=== PATIENT | female | born 1950 | race Caucasian/White ===

== ENCOUNTER 2020-10-28 14:38 | Inpatient (IN) | payer MEDICARE, OTHER ==
[~2020-10-28] VITALS: Ht 156.2 cm; Wt 67.1 kg
[2020-10-28] MEDS ORDERED: APIX5TAB PO (19:37)
[2020-10-28] MEDS ORDERED: SENN-261 PO (19:37)
[2020-10-28] MEDS ORDERED: PANT40TA2 PO (19:37)
[2020-10-28] MEDS ORDERED: BUPR150T5 PO (19:37)
[2020-10-28] MEDS ORDERED: DOCU100C36 PO (19:37)
[2020-10-28] MEDS ORDERED: BUSP5TAB3 PO (19:37)
[2020-10-28] MEDS ORDERED: OXYC15TA2 PO (19:37)
[2020-10-28] MEDS ORDERED: DRON10CA5 PO (19:37)
[2020-10-28] MEDS ORDERED: MEMA10TA PO (19:58)
[2020-10-28] MEDS ORDERED: SELE200T26 PO (19:58)
[2020-10-28] MEDS ORDERED: RIBO400T PO (19:58)
[2020-10-28] MEDS ORDERED: CHOL100062 PO (19:58)
[2020-10-28] MEDS ORDERED: CALC500T88 PO (19:58)
[2020-10-28] MEDS ORDERED: ZINC50TA65 PO (19:58)
[2020-10-28] MEDS ORDERED: LIOT10VI PO (19:58)
[2020-10-28] MEDS ORDERED: MAGN400T8 PO (19:58)
[2020-10-28] MEDS ORDERED: FERR325T23 PO (19:58)
[2020-10-28] MEDS ORDERED: VITA-287 PO (19:58)
[2020-10-28] MEDS ORDERED: TRAZ-182 PO (19:58)
[2020-10-28] MEDS ORDERED: MAG30ORA2 PO (19:58)
[2020-10-28] MEDS ORDERED: CETI-90 PO (19:58)
[2020-10-28] MEDS ORDERED: ATOR80TA PO (19:58)
[2020-10-28] MEDS ORDERED: POTA10CA43 PO (19:58)
[2020-10-28] MEDS ORDERED: BISO5TAB20 PO (19:58)
[2020-10-28] MEDS ORDERED: DEXL60CA3 PO (19:58)
[2020-10-28] MEDS ORDERED: LEVO75TA7 PO (19:58)
[2020-10-28] MEDS ORDERED: HYPR10DR OP (19:58)
[2020-10-28] MEDS ORDERED: POLY17PO4 PO (19:58)
[2020-10-28] MEDS ORDERED: LIFI1DRO EACHEYE (19:58)
[2020-10-28] MEDS ORDERED: FAMO40TA7 PO (19:58)
[2020-10-28] MEDS ORDERED: CHLO25TA2 PO (19:58)
[2020-10-28] MEDS ORDERED: METF-440 PO (19:58)
[2020-10-28] MEDS ORDERED: IRBE300T19 PO (19:58)
[2020-10-28] MEDS ORDERED: DICY10CA13 PO (19:58)
[2020-10-28] MEDS ORDERED: HYDR-4322 PO (19:58)
[2020-10-28] MEDS ORDERED: HYDR5TAB13 PO (19:58)
[2020-10-28] MEDS ORDERED: KETO5DRO72 OP (19:58)
[2020-10-28 20:00] VITALS: BP 100/51
[2020-10-28] MEDS ORDERED: KETOTIFEN FUMARATE OP SCH (20:30)
[2020-10-28] MEDS ORDERED: HYPROMELLOSE OP SCH (20:30)
[2020-10-28] MEDS ORDERED: CETIRIZINE HCL 10 MG TABLET PO PRN (20:30)
[2020-10-28] MEDS ORDERED: MIRALAX 17 GM POWD.PACK PO PRN (20:30)
[2020-10-28] MEDS ORDERED: TRAZODONE 50 MG TABLET PO PRN (20:30)
[2020-10-28] MEDS ORDERED: SENNOSIDES 1 TABLET PO PRN (20:30)
[2020-10-28] MEDS ORDERED: NALOXONE HCL 0.4 MG/ML AMPUL IV PRN (20:45)
[2020-10-28] MEDS ORDERED: METFORMIN HCL 500 MG TABLET PO SCH (21:00)
[2020-10-28] MEDS ORDERED: Medication Not On Formulary EA (Famotidine 40 MG) PO SCH (21:00)
[2020-10-28] MEDS: buPROPion SR 150 MG TABLET.SA PO SCH (21:50)
[2020-10-28] MEDS: PANTOPRAZOLE SODIUM 40 MG TABLET.DR PO SCH (21:51)
[2020-10-28] MEDS: ATORVASTATIN 40 MG TABLET PO SCH (21:51)
[2020-10-28] MEDS: DRONABINOL 2.5 MG CAPSULE PO SCH (21:51)
[2020-10-28] MEDS: DICYCLOMINE HCL 10 MG CAPSULE PO SCH (21:51)
[2020-10-28] MEDS: OXYCODONE HCL 20 MG TAB.SR.12H PO SCH (21:59)
[2020-10-28] MEDS: HYDROCORTISONE 10 MG TABLET PO SCH (22:03)
[2020-10-28] MEDS ORDERED: HYDROCORTISONE 10 MG TABLET ONE (22:05)
[2020-10-28] MEDS ORDERED: DEXTROSE 50% 50 ML DISP.SYRIN IV PRN (22:15)
[2020-10-28] MEDS ORDERED: OXYCODONE HCL 5 MG TABLET PO PRN (22:30)
--- NOTE | 2020-10-28 22:46 | NUR ---
Pt arrived in the unit at 1907 via gurney accompanied by ophthalmic technologist from [facility]. Pt is AAO x4. No acute distress noted. Admitting diagnosis of s/p right hip replacement and hip OA. Med recon done by Cierra RODRIGUEZ. Notified Dr. Pereyra of admission with new order to start OxyContin 20mg q8h ATC and Dilaudid 4mg q6h prn. Pt c/o 7/10 pain on the right. Scheduled pain med and other due meds given as ordered. Lagunas catheter draining well with clear yellow colored urine. Pt was brought dinner by her . Safety measures maintained. Call light and personal items within reach. Will continue to monitor.
--- NOTE | 2020-10-28 23:00 | NUR ---
Pt refused wound care and picture at this time. Pt stated being in pain and tired, wants to rest and do picture in the morning. Risks and benefits explained, still refused. Will offer again.
[2020-10-29 04:00] VITALS: BP 106/50
[2020-10-29] MEDS: OXYCODONE HCL 20 MG TAB.SR.12H PO SCH ×3 (05:21→22:14)
--- NOTE | 2020-10-29 05:43 | NUR ---
Pt again refused wound care and picture but pt stated if we can do it later in the morning. Risks and benefits explained. Will try to offer again.
[2020-10-29 06:16] LABS: BASOPHILS % (AUTO) 0.3 % (0.0-2.0); EOSINOPHILS # (AUTO) 0.4 K/uL (0.0-0.7); EOSINOPHILS % (AUTO) 5.2 % (0.0-7.0); HEMATOCRIT 23.3 % (31.2-41.9); HEMOGLOBIN 7.8 g/dL (10.9-14.3); LYMPHOCYTES # (AUTO) 1.5 K/uL (20.0-40.0); MEAN CORPUSCULAR HEMOGLOBIN 34.2 uug (24.7-32.8); MEAN CORPUSCULAR HGB CONC 34 g/dL (32.3-35.6); MEAN CORPUSCULAR VOLUME 101.8 fL (75.5-95.3); MONOCYTES # (AUTO) 0.9 K/uL (2.0-10.0); MONOCYTES % (AUTO) 11.3 % (0.0-11.0); NEUTROPHILS # (AUTO) 5.1 K/uL (1.8-8.9); NEUTROPHILS % (AUTO) 64.2 % (38.5-71.5); PLATELET COUNT (AUTO) 177 K/uL (179-408)
[2020-10-29 06:24] LABS: RED BLOOD CELL COUNT(AUTO) 2.29 MIL/uL (3.63-4.92)
[2020-10-29 06:26] LABS: CREATININE 1.3 mg/dL (0.6-1.3); MAGNESIUM 1.8 mg/dL (1.8-2.4); PHOSPHOROUS 3.2 mg/dL (2.5-4.9); POTASSIUM 3.7 mmol/L (3.5-5.1)
[2020-10-29] MEDS: BLOOD SUGAR DIAGNOSTIC 1 EACH STRIP VI SCH ×4 (06:33→22:22)
[2020-10-29] MEDS ORDERED: LEVOTHYROXINE SODIUM 75 MCG TABLET PO SCH ×2 (07:30→11:53)
[2020-10-29 08:00] VITALS: BP 105/60
[2020-10-29] MEDS: buPROPion SR 150 MG TABLET.SA PO SCH (08:50)
[2020-10-29] MEDS: CHOLECALCIFEROL 1,000 UNIT TABLET PO SCH (08:50)
[2020-10-29] MEDS: FERROUS SULFATE 325 MG TABEC PO SCH ×3 (08:51→16:36)
[2020-10-29] MEDS: MAGNESIUM OXIDE 400 MG TABLET PO SCH (08:51)
[2020-10-29] MEDS: PANTOPRAZOLE SODIUM 40 MG TABLET.DR PO SCH ×2 (08:51→22:12)
[2020-10-29] MEDS: busPIRone 5 MG TABLET PO SCH ×3 (08:51→16:36)
[2020-10-29] MEDS: MEMANTINE HCL 10 MG TABLET PO SCH ×2 (08:51→16:36)
[2020-10-29] MEDS: DICYCLOMINE HCL 10 MG CAPSULE PO SCH ×2 (08:51→12:15)
[2020-10-29] MEDS: CALCIUM CARBONATE 500 MG TABLET PO SCH (08:52)
[2020-10-29] MEDS: APIXABAN 5 MG TABLET PO SCH ×2 (08:53→16:37)
[2020-10-29] MEDS ORDERED: Medication Not On Formulary EA (Zinc Amino Acid Chelate (Zinc) 50 MG) PO SCH (09:00)
[2020-10-29] MEDS ORDERED: Medication Not On Formulary EA (Bisoprolol Fumarate 5 MG) PO SCH (09:00)
[2020-10-29] MEDS ORDERED: LIOTHYRONINE SODIUM PO SCH (09:00)
[2020-10-29] MEDS: LOSARTAN POTASSIUM 50 MG TABLET PO SCH (09:00)
[2020-10-29] MEDS ORDERED: Medication Not On Formulary EA (Riboflavin 400 MG) PO SCH (09:00)
[2020-10-29] MEDS: ATENOLOL 50 MG TABLET PO SCH (09:00)
[2020-10-29] MEDS ORDERED: POTASSIUM CHLORIDE 10 MEQ TAB.PRT.SR PO SCH (09:00)
[2020-10-29] MEDS ORDERED: DOCUSATE SODIUM 100 MG CAPSULE PO SCH (09:00)
[2020-10-29] MEDS ORDERED: [UNRECOGNIZED DRUG - OTHER] PO SCH (09:00)
[2020-10-29] MEDS: HYDROCORTISONE 10 MG TABLET PO SCH ×2 (09:15→22:12)
[2020-10-29] MEDS: CHLORTHALIDONE 25 MG TABLET PO SCH (09:16)
[2020-10-29] MEDS: VITAMIN B COMPLEX 1 TABLET PO SCH (09:17)
[2020-10-29] MEDS: DRONABINOL 2.5 MG CAPSULE PO SCH (09:30)
[2020-10-29] MEDS: XIIDRA EACHEYE SCH ×2 (09:33→16:42)
[2020-10-29] MEDS: LIOTHYRONINE SODIUM 5 MCG TABLET PO SCH (10:30)
[2020-10-29] MEDS ORDERED: POLYVINYL ALCOHOL OPHT DROPS 15 ML BOTTLE EACHEYE PRN (10:30)
[2020-10-29] MEDS: HYDROMORPHONE HCL 2 MG TABLET PO PRN (10:43)
[2020-10-29] MEDS ORDERED: DOCU250C14 PO (12:49)
[2020-10-29] MEDS ORDERED: POTA20PA40 PO (12:49)
[2020-10-29] MEDS ORDERED: POTASSIUM CHLORIDE 20 MEQ POWDER PACKET PO SCH (12:59)
[2020-10-29] MEDS ORDERED: METFORMIN HCL 500 MG TABLET PO SCH (13:01)
[2020-10-29] MEDS ORDERED: PLEC3TAB2 PO (13:26)
--- NOTE | 2020-10-29 16:00 | NUR ---
Patient is alert and oriented x 3 denies of any pain, cooperative upon assessment. On room air saturating at 95%. Obtained picture on the right hip surgical site with patient's permission. Dressing is intact. All due meds given as ordered. Patient complains of coughing , Notify Tati Norton OIL PIPE INSPECTOR HELPER and ordered for sputum culture and Benzonatate every 8 hours for cough patient notified and agreed.
[2020-10-29] MEDS: DOCUSATE SODIUM 250 MG CAPSULE PO SCH (16:36)
[2020-10-29] MEDS: METFORMIN HCL 500 MG TABLET PO SCH (16:36)
[2020-10-29 16:39] VITALS: BP 102/56
[2020-10-29] MEDS ORDERED: ISOSORBIDE MONONITRATE 60 MG TAB.SR.24H PO SCH (17:00)
[2020-10-29 20:32] VITALS: BP 100/47
[2020-10-29] MEDS: BENZONATATE 100 MG CAPSULE PO SCH (22:11)
[2020-10-29] MEDS: TRAZODONE 50 MG TABLET PO SCH (22:13)
[2020-10-29] MEDS: ATORVASTATIN 40 MG TABLET PO SCH (22:13)
[2020-10-29] MEDS: INSULIN REGULAR, HUMAN 300 UNIT/3 ML VIAL SQ PRN (22:34)
[2020-10-30 05:12] VITALS: BP 107/54
[2020-10-30] MEDS: LIOTHYRONINE SODIUM 5 MCG TABLET PO SCH (06:09)
[2020-10-30] MEDS: BENZONATATE 100 MG CAPSULE PO SCH ×3 (06:09→21:03)
[2020-10-30] MEDS: OXYCODONE HCL 20 MG TAB.SR.12H PO SCH ×3 (06:09→21:03)
[2020-10-30 06:42] LABS: HEMATOCRIT 22.2 % (31.2-41.9); HEMOGLOBIN 7.6 g/dL (10.9-14.3)
[2020-10-30] MEDS: LEVOTHYROXINE SODIUM 75 MCG TABLET PO SCH (07:01)
[2020-10-30] MEDS: PANTOPRAZOLE SODIUM 40 MG TABLET.DR PO SCH ×2 (07:18→16:32)
[2020-10-30 07:30] VITALS: BP 110/51
[2020-10-30] MEDS: BLOOD SUGAR DIAGNOSTIC 1 EACH STRIP VI SCH ×4 (07:58→20:48)
[2020-10-30] MEDS: INSULIN REGULAR, HUMAN 300 UNIT/3 ML VIAL SQ PRN ×2 (08:48→23:31)
[2020-10-30] MEDS: VITAMIN B COMPLEX 1 TABLET PO SCH (08:49)
[2020-10-30] MEDS: busPIRone 5 MG TABLET PO SCH ×3 (08:50→16:31)
[2020-10-30] MEDS: CHLORTHALIDONE 25 MG TABLET PO SCH (08:50)
[2020-10-30] MEDS: [UNRECOGNIZED DRUG - OTHER] PO SCH (08:50)
[2020-10-30] MEDS: HYDROCORTISONE 10 MG TABLET PO SCH ×2 (08:51→20:50)
[2020-10-30] MEDS: DOCUSATE SODIUM 250 MG CAPSULE PO SCH ×2 (08:51→16:31)
[2020-10-30] MEDS: FERROUS SULFATE 325 MG TABEC PO SCH ×3 (08:52→16:32)
[2020-10-30] MEDS: MEMANTINE HCL 10 MG TABLET PO SCH ×2 (08:53→16:32)
[2020-10-30] MEDS: ZINC SULFATE 220 MG CAPSULE PO SCH (08:53)
[2020-10-30] MEDS: METFORMIN HCL 500 MG TABLET PO SCH ×2 (08:53→16:32)
[2020-10-30] MEDS: MAGNESIUM OXIDE 400 MG TABLET PO SCH (08:53)
[2020-10-30] MEDS: CALCIUM CARBONATE 500 MG TABLET PO SCH (08:53)
[2020-10-30] MEDS: CHOLECALCIFEROL 1,000 UNIT TABLET PO SCH (08:53)
[2020-10-30] MEDS: ATENOLOL 50 MG TABLET PO SCH (08:53)
[2020-10-30] MEDS: HYDROMORPHONE HCL 2 MG TABLET PO PRN (08:55)
[2020-10-30] MEDS: APIXABAN 5 MG TABLET PO SCH ×2 (08:56→16:33)
[2020-10-30] MEDS: LOSARTAN POTASSIUM 50 MG TABLET PO SCH (09:00)
[2020-10-30] MEDS ORDERED: buPROPion SR 150 MG TABLET.SA PO SCH (09:00)
[2020-10-30] MEDS: buPROPion XL 150 MG TAB.SR.24H PO SCH (10:21)
[2020-10-30] MEDS: XIIDRA EACHEYE SCH ×2 (10:21→16:31)
[2020-10-30] MEDS: POTASSIUM CHLORIDE 20 MEQ TAB.PRT.SR PO SCH (10:22)
[2020-10-30] MEDS ORDERED: BUPR300T52 PO (11:56)
[2020-10-30] MEDS: MOTEGRITY PO SCH (12:09)
[2020-10-30] MEDS ORDERED: DICY10CA13 PO (13:34)
[2020-10-30] MEDS: ONDANSETRON HCL 4 MG TABLET PO PRN (14:30)
[2020-10-30 15:36] VITALS: BP 108/53
[2020-10-30] MEDS: DICYCLOMINE HCL 10 MG CAPSULE PO SCH ×2 (16:31→20:49)
--- NOTE | 2020-10-30 18:55 | NUR ---
End of shift note: Pt in bed, A&Ox4, able to verbalize needs, all needs met at this time. Pt denies pain at this time. No acute distress, no SOB. VSS. Pt O2 saturation 94% on 1.0 L NC, 92%-93% on RA. Pt assisted from bed to restroom and back, no BM at this time. Pt had scheduled Colace and home medications per order today. Pt offered PRN Miralax, pt declined. Due medications given per order, no a/r noted. Pt requested home medications Anetteegrity and Bentyl, WIRE LATHER Tati Norton notified, new orders in place. Pt reported nausea this afternoon, MICHAEL Norton notified, Zofran PRN order in place. Zofran PRN administered per order, per pt, effective. Pt denied emesis. Per pt request, administered hot pack for abdominal spasm, effective. Aleksander at bedside this afternoon, nursing care discussed with and pt. Safety measures maintained and fall precautions maintained. Call light and belongings within reach. Will endorse care to slip dumper nurse.
[2020-10-30 20:24] VITALS: BP 129/67
[2020-10-30] MEDS: TRAZODONE 50 MG TABLET PO SCH (20:49)
[2020-10-30] MEDS: ATORVASTATIN 40 MG TABLET PO SCH (20:49)
[2020-10-30] MEDS: MIRALAX 17 GM POWD.PACK PO PRN (21:08)
--- NOTE | 2020-10-30 22:00 | NUR ---
Patient is alert and oriented x 3 On room air saturating at 92%, right hip surgical site dressing intact, ice bag provided for comfort, mild c/o pain , Accu- check done blood sugar 144mg/dl patient refuse to get sliding scale insulin stated "45 minutes past she ate". Risk and benefits discussed patient aware, respected patients rights. All due meds given as ordered, Assist patient to bathroom, no bowels moment ,Lagunas catheter intact urine flowing in bag ,yellow color 500 ml urine in bag patient c/o spasm . Routine pain medications administered as ordered, turned and repositioned . Needs anticipated. safety measures observed all time. Call light with in reach.
[2020-10-31] MEDS: HYDROMORPHONE HCL 2 MG TABLET PO PRN ×2 (00:34→15:00)
--- NOTE | 2020-10-31 00:35 | NUR ---
Patient c/o pain on PS 8/10 right hip turned and repositioned, PRN Dilaudid 2 mg administered as ordered, ice pack provided on pain site. provided quite and calm environment. Needs anticipated Call light with in reach. Will continue monitoring for pain.
[2020-10-31 04:24] VITALS: BP 97/47
--- NOTE | 2020-10-31 04:43 | NUR ---
patient slept through-out night with no acute distress reported. needs anticipated call light with in reach. safety measures observed.
[2020-10-31] MEDS: BENZONATATE 100 MG CAPSULE PO SCH ×3 (06:04→21:35)
[2020-10-31] MEDS: OXYCODONE HCL 20 MG TAB.SR.12H PO SCH ×3 (06:06→21:35)
[2020-10-31] MEDS: BLOOD SUGAR DIAGNOSTIC 1 EACH STRIP VI SCH ×4 (06:41→20:58)
[2020-10-31 07:00] LABS: CREATININE 1.3 mg/dL (0.6-1.3); POTASSIUM 4.2 mmol/L (3.5-5.1)
[2020-10-31] MEDS: LIOTHYRONINE SODIUM 5 MCG TABLET PO SCH (07:06)
[2020-10-31] MEDS: PANTOPRAZOLE SODIUM 40 MG TABLET.DR PO SCH ×2 (07:06→16:30)
[2020-10-31] MEDS: LEVOTHYROXINE SODIUM 75 MCG TABLET PO SCH (07:06)
[2020-10-31 07:49] VITALS: BP 111/56
[2020-10-31] MEDS: ATENOLOL 50 MG TABLET PO SCH (09:00)
[2020-10-31] MEDS: LOSARTAN POTASSIUM 50 MG TABLET PO SCH (09:00)
[2020-10-31] MEDS: XIIDRA EACHEYE SCH ×2 (09:01→16:34)
[2020-10-31] MEDS: MEMANTINE HCL 10 MG TABLET PO SCH ×2 (09:02→16:30)
[2020-10-31] MEDS: CALCIUM CARBONATE 500 MG TABLET PO SCH (09:02)
[2020-10-31] MEDS: buPROPion XL 150 MG TAB.SR.24H PO SCH (09:02)
[2020-10-31] MEDS: POTASSIUM CHLORIDE 20 MEQ TAB.PRT.SR PO SCH (09:02)
[2020-10-31] MEDS: CHOLECALCIFEROL 1,000 UNIT TABLET PO SCH (09:02)
[2020-10-31] MEDS: METFORMIN HCL 500 MG TABLET PO SCH ×2 (09:02→16:30)
[2020-10-31] MEDS: DOCUSATE SODIUM 250 MG CAPSULE PO SCH ×2 (09:02→16:37)
[2020-10-31] MEDS: ZINC SULFATE 220 MG CAPSULE PO SCH (09:03)
[2020-10-31] MEDS: APIXABAN 5 MG TABLET PO SCH ×2 (09:03→16:34)
[2020-10-31] MEDS: MAGNESIUM OXIDE 400 MG TABLET PO SCH (09:03)
[2020-10-31] MEDS: FERROUS SULFATE 325 MG TABEC PO SCH ×3 (09:03→16:26)
[2020-10-31] MEDS: busPIRone 5 MG TABLET PO SCH ×3 (09:03→16:30)
[2020-10-31] MEDS: CHLORTHALIDONE 25 MG TABLET PO SCH (09:04)
[2020-10-31] MEDS: [UNRECOGNIZED DRUG - OTHER] PO SCH (09:04)
[2020-10-31] MEDS: MOTEGRITY PO SCH (09:04)
[2020-10-31] MEDS: VITAMIN B COMPLEX 1 TABLET PO SCH (09:05)
[2020-10-31] MEDS: HYDROCORTISONE 10 MG TABLET PO SCH ×2 (09:05→20:51)
[2020-10-31] MEDS: DICYCLOMINE HCL 10 MG CAPSULE PO SCH ×4 (09:07→20:51)
[2020-10-31] MEDS: ONDANSETRON HCL 4 MG TABLET PO PRN (11:08)
--- NOTE | 2020-10-31 12:51 | NUR ---
INDIVIDUALIZED PLAN OF CARE
[2020-10-31 16:00] VITALS: BP 92/46
--- NOTE | 2020-10-31 17:50 | NUR ---
Patient seen and examined by Dr. Roddy MD ordered chest x-ray for complain of cough.
[2020-10-31 20:21] VITALS: BP 107/48
[2020-10-31] MEDS: TRAZODONE 50 MG TABLET PO SCH (20:51)
[2020-10-31] MEDS: ATORVASTATIN 40 MG TABLET PO SCH (20:51)
[2020-10-31] MEDS: MIRALAX 17 GM POWD.PACK PO PRN (21:03)
[2020-11-01 04:24] VITALS: BP 99/54
[2020-11-01] MEDS: BENZONATATE 100 MG CAPSULE PO SCH ×3 (05:30→21:21)
[2020-11-01] MEDS: OXYCODONE HCL 20 MG TAB.SR.12H PO SCH ×3 (05:30→21:21)
--- NOTE | 2020-11-01 06:12 | NUR ---
Shift End Report: VSS. Slept good. Occasional non productive cough. Continue on Tessalon perles as ordered. Miralax and Senokot given last night not effective. Will continue to monitor. All nneeds attended and met. Continue current rehab plan of care.
[2020-11-01] MEDS: LEVOTHYROXINE SODIUM 75 MCG TABLET PO SCH (06:20)
[2020-11-01] MEDS: LIOTHYRONINE SODIUM 5 MCG TABLET PO SCH (06:20)
[2020-11-01] MEDS: PANTOPRAZOLE SODIUM 40 MG TABLET.DR PO SCH ×2 (06:20→16:28)
[2020-11-01] MEDS: BLOOD SUGAR DIAGNOSTIC 1 EACH STRIP VI SCH ×4 (06:26→20:43)
[2020-11-01 08:00] VITALS: BP 124/54
[2020-11-01] MEDS: CHOLECALCIFEROL 1,000 UNIT TABLET PO SCH (08:17)
[2020-11-01] MEDS: MAGNESIUM OXIDE 400 MG TABLET PO SCH (08:17)
[2020-11-01] MEDS: CALCIUM CARBONATE 500 MG TABLET PO SCH (08:17)
[2020-11-01] MEDS: ZINC SULFATE 220 MG CAPSULE PO SCH (08:17)
[2020-11-01] MEDS: FERROUS SULFATE 325 MG TABEC PO SCH ×3 (08:17→16:24)
[2020-11-01] MEDS: buPROPion XL 150 MG TAB.SR.24H PO SCH (08:17)
[2020-11-01] MEDS: POTASSIUM CHLORIDE 20 MEQ TAB.PRT.SR PO SCH (08:17)
[2020-11-01] MEDS: DICYCLOMINE HCL 10 MG CAPSULE PO SCH ×4 (08:18→20:36)
[2020-11-01] MEDS: MEMANTINE HCL 10 MG TABLET PO SCH ×2 (08:18→16:24)
[2020-11-01] MEDS: METFORMIN HCL 500 MG TABLET PO SCH ×2 (08:18→16:25)
[2020-11-01] MEDS: busPIRone 5 MG TABLET PO SCH ×3 (08:18→16:26)
[2020-11-01] MEDS: ATENOLOL 50 MG TABLET PO SCH (08:19)
[2020-11-01] MEDS: LOSARTAN POTASSIUM 50 MG TABLET PO SCH (08:19)
[2020-11-01] MEDS: DOCUSATE SODIUM 250 MG CAPSULE PO SCH ×2 (08:20→16:24)
[2020-11-01] MEDS: MIRALAX 17 GM POWD.PACK PO PRN (08:21)
[2020-11-01] MEDS: XIIDRA EACHEYE SCH ×2 (08:26→16:33)
[2020-11-01] MEDS: VITAMIN B COMPLEX 1 TABLET PO SCH (08:27)
[2020-11-01] MEDS: HYDROCORTISONE 10 MG TABLET PO SCH ×2 (08:28→20:37)
[2020-11-01] MEDS: CHLORTHALIDONE 25 MG TABLET PO SCH (08:28)
[2020-11-01] MEDS: APIXABAN 5 MG TABLET PO SCH ×2 (08:38→16:32)
[2020-11-01] MEDS: MOTEGRITY PO SCH (09:26)
[2020-11-01] MEDS: SENNOSIDES 1 TABLET PO SCH (09:26)
[2020-11-01] MEDS: [UNRECOGNIZED DRUG - OTHER] PO SCH (09:26)
--- NOTE | 2020-11-01 10:00 | NUR ---
patient stated she is missing her mouth piece, in other words her dentures, tried to look in linens, boxes and on the table, could not locate, called dietary, will continue to look. patient has lot of stuff sitting next to her on her bed, and on her table, encouraged patient to keep it little organize, nurse can assist to keep it organize, patient stated she likes it that way.
[2020-11-01] MEDS: HYDROMORPHONE HCL 2 MG TABLET PO PRN (10:36)
[2020-11-01 16:14] VITALS: BP 106/45
[2020-11-01] MEDS ORDERED: ALBUTEROL SULFATE 2.5 MG/3 ML NEBU NEB PRN (17:45)
--- NOTE | 2020-11-01 18:35 | NUR ---
carranza dcd, continue to monitor for voiding, no distress noted, patient is able to ambulate with fww
[2020-11-01 20:12] VITALS: BP 112/42
[2020-11-01] MEDS: ATORVASTATIN 40 MG TABLET PO SCH (20:36)
[2020-11-01] MEDS: TRAZODONE 50 MG TABLET PO SCH (20:36)
[2020-11-02 04:41] VITALS: BP 107/48
[2020-11-02] MEDS: GUAIFENESIN/CODEINE 5 ML LIQUID UDC PO PRN ×2 (05:08→16:36)
[2020-11-02] MEDS: LIOTHYRONINE SODIUM 5 MCG TABLET PO SCH (06:13)
[2020-11-02] MEDS: PANTOPRAZOLE SODIUM 40 MG TABLET.DR PO SCH ×2 (06:13→16:30)
[2020-11-02] MEDS: LEVOTHYROXINE SODIUM 75 MCG TABLET PO SCH (06:13)
[2020-11-02] MEDS: OXYCODONE HCL 20 MG TAB.SR.12H PO SCH ×3 (06:14→21:59)
[2020-11-02] MEDS: BENZONATATE 100 MG CAPSULE PO SCH ×3 (06:14→21:59)
[2020-11-02 07:20] LABS: THYROID STIMULATING HORMONE 1.563 mIU/mL (0.358-3.740)
[2020-11-02 07:24] LABS: BASOPHILS # (AUTO) 0.1 K/uL (0.0-8.0); BASOPHILS % (AUTO) 0.6 % (0.0-2.0); EOSINOPHILS # (AUTO) 0.6 K/uL (0.0-0.7); EOSINOPHILS % (AUTO) 6.4 % (0.0-7.0); HEMATOCRIT 22.5 % (31.2-41.9); HEMOGLOBIN 7.8 g/dL (10.9-14.3); MEAN CORPUSCULAR HEMOGLOBIN 35.1 uug (24.7-32.8); MEAN CORPUSCULAR HGB CONC 35 g/dL (32.3-35.6); MEAN CORPUSCULAR VOLUME 101.7 fL (75.5-95.3); MONOCYTES # (AUTO) 0.9 K/uL (2.0-10.0); MONOCYTES % (AUTO) 9.3 % (0.0-11.0); NEUTROPHILS % (AUTO) 62.7 % (38.5-71.5); PLATELET COUNT (AUTO) 321 K/uL (179-408); WHITE BLOOD COUNT (AUTO) 9.6 K/uL (3.8-11.8)
[2020-11-02 07:26] LABS: RED BLOOD CELL COUNT(AUTO) 2.21 MIL/uL (3.63-4.92)
[2020-11-02 07:38] VITALS: BP 122/70
[2020-11-02 07:47] LABS: BILIRUBIN,TOTAL 0.7 mg/dL (0.2-1.0); CREATININE 1.3 mg/dL (0.6-1.3); MAGNESIUM 1.5 mg/dL (1.8-2.4); PHOSPHOROUS 2.6 mg/dL (2.5-4.9); TOTAL PROTEIN, SERUM 5.9 g/dL (6.4-8.2); URIC ACID 5.3 mg/dL (2.6-6.0)
[2020-11-02] MEDS: ALBUTEROL SULFATE 2.5 MG/3 ML NEBU NEB PRN ×3 (08:05→23:58)
[2020-11-02] MEDS: IPRATROPIUM BROMIDE 0.5 MG/2.5 ML NEBU NEB PRN ×3 (08:05→23:58)
[2020-11-02] MEDS: SENNOSIDES 1 TABLET PO SCH (08:07)
[2020-11-02] MEDS: CHOLECALCIFEROL 1,000 UNIT TABLET PO SCH (08:07)
[2020-11-02] MEDS: CALCIUM CARBONATE 500 MG TABLET PO SCH (08:07)
[2020-11-02] MEDS: POTASSIUM CHLORIDE 20 MEQ TAB.PRT.SR PO SCH (08:07)
[2020-11-02] MEDS: FERROUS SULFATE 325 MG TABEC PO SCH ×3 (08:07→16:30)
[2020-11-02] MEDS: buPROPion XL 150 MG TAB.SR.24H PO SCH (08:08)
[2020-11-02] MEDS: ZINC SULFATE 220 MG CAPSULE PO SCH (08:08)
[2020-11-02] MEDS: DOCUSATE SODIUM 250 MG CAPSULE PO SCH ×2 (08:08→16:30)
[2020-11-02] MEDS: METFORMIN HCL 500 MG TABLET PO SCH ×2 (08:08→16:37)
[2020-11-02] MEDS: MAGNESIUM OXIDE 400 MG TABLET PO SCH (08:09)
[2020-11-02] MEDS: LOSARTAN POTASSIUM 50 MG TABLET PO SCH (08:10)
[2020-11-02] MEDS: DICYCLOMINE HCL 10 MG CAPSULE PO SCH ×4 (08:10→20:28)
[2020-11-02] MEDS: busPIRone 5 MG TABLET PO SCH ×3 (08:11→16:30)
[2020-11-02] MEDS: ATENOLOL 50 MG TABLET PO SCH (08:11)
[2020-11-02] MEDS: MEMANTINE HCL 10 MG TABLET PO SCH ×2 (08:11→16:30)
[2020-11-02] MEDS: MOTEGRITY PO SCH (08:12)
[2020-11-02] MEDS: XIIDRA EACHEYE SCH ×2 (08:12→16:37)
[2020-11-02] MEDS: HYDROCORTISONE 10 MG TABLET PO SCH ×2 (08:12→20:29)
[2020-11-02] MEDS: CHLORTHALIDONE 25 MG TABLET PO SCH (08:12)
[2020-11-02] MEDS: VITAMIN B COMPLEX 1 TABLET PO SCH (08:12)
[2020-11-02] MEDS: [UNRECOGNIZED DRUG - OTHER] PO SCH (08:12)
[2020-11-02] MEDS: APIXABAN 5 MG TABLET PO SCH ×2 (08:14→16:31)
[2020-11-02] MEDS ORDERED: MAGNESIUM OXIDE 400 MG TABLET PO ONE (09:45)
--- NOTE | 2020-11-02 10:00 | NUR ---
patient literacy coach was saying that "someone drank my coke from my bottle that was foll last night, and some one threw away my mouthwash" reassured patient that director of social work will here to talk about your concerns, social worker health services made aware
[2020-11-02] MEDS: HYDROMORPHONE HCL 2 MG TABLET PO PRN (11:35)
--- NOTE | 2020-11-02 13:26 | NUR ---
CODIE Consult: CODIE received a consult for patient Patti Daily room 329 regarding her accusing staff of throwing her stuff away. CODIE met with patient this morning who shared her concerns of her dentures missing as of Saturday10/31/20. Patient stated that Saturday night the CELLOPHANE PRESS OPERATOR took her dentures to wash them and never brought them back. Patient has an empty orange color denture box in her room which she showed me. Pt does not remember the name of the CELLOPHANE PRESS OPERATOR that night. Patient stated they cost around $1,500 and Medicare will not pay for it. I want to file a police report and an incident report. Patient stated she realized Saturday that her dentures were missing. Patient also expressed a complaint of her soda being possibly less than before. Patient stated, When I went to sleep I had almost a full bottle of Coke, when I woke up the next morning it was almost empty. Patient expressed a lot of disappointment and stated that the most important thing is to either find or replace her dentures. CODIE also spoke with SHEELA Miller who informed me of this concern. Patient is expecting a visit from someone in administration. Patient is alert and oriented x4. CODIE informed Lidia Jackson Andrew, and [place] of this complaint.
[2020-11-02] MEDS ORDERED: BISACODYL 10 MG SUPP.RECT RC PRN (15:30)
[2020-11-02 15:36] VITALS: BP 105/40
--- NOTE | 2020-11-02 16:22 | NUR ---
INTERDISCIPLINARY TEAM CONFERENCE
[2020-11-02] MEDS: MIRALAX 17 GM POWD.PACK PO SCH (16:30)
--- NOTE | 2020-11-02 18:54 | NUR ---
no changes noted during shift, participated in PT,OT services, voiding well,still constipated miralax administered will continue to monitor
--- NOTE | 2020-11-02 19:50 | NUR ---
Awake, alert and sitting on bed while watching TV same time eating salad. When nurse asked how she's doing, responded with smile "Im doing fine how about you? We're you able to slept good?. Very conversant. at bedside. Safety measures and fall prevention maintained. Instructed patient not to hesitate to call for help/assistance when she needed to.
[2020-11-02] MEDS: ATORVASTATIN 20 MG TABLET PO SCH (20:28)
[2020-11-02] MEDS: TRAZODONE 50 MG TABLET PO SCH (20:28)
[2020-11-02 20:30] VITALS: BP 129/58
[2020-11-03 04:30] VITALS: BP 132/38
[2020-11-03] MEDS: GUAIFENESIN/CODEINE 5 ML LIQUID UDC PO PRN (04:39)
[2020-11-03] MEDS: OXYCODONE HCL 20 MG TAB.SR.12H PO SCH ×3 (05:53→21:31)
[2020-11-03] MEDS: BENZONATATE 100 MG CAPSULE PO SCH ×3 (05:54→21:30)
[2020-11-03] MEDS: LIOTHYRONINE SODIUM 5 MCG TABLET PO SCH (06:07)
[2020-11-03] MEDS: PANTOPRAZOLE SODIUM 40 MG TABLET.DR PO SCH ×2 (06:07→16:51)
[2020-11-03] MEDS: LEVOTHYROXINE SODIUM 75 MCG TABLET PO SCH (06:07)
--- NOTE | 2020-11-03 06:39 | NUR ---
Shift end report: VSS. Slept good. Ambulatory to the bathroom with minimal assist. Still on routine pain meds without s/s adverse reaction noted. Contiue current rehab plan of care. .
[2020-11-03 07:30] VITALS: BP 125/54
[2020-11-03] MEDS: DOCUSATE SODIUM 250 MG CAPSULE PO SCH ×2 (08:23→16:51)
[2020-11-03] MEDS: FERROUS SULFATE 325 MG TABEC PO SCH ×3 (08:23→16:51)
[2020-11-03] MEDS: busPIRone 5 MG TABLET PO SCH ×4 (08:23→16:51)
[2020-11-03] MEDS: ZINC SULFATE 220 MG CAPSULE PO SCH (08:23)
[2020-11-03] MEDS: LOSARTAN POTASSIUM 50 MG TABLET PO SCH (08:23)
[2020-11-03] MEDS: METFORMIN HCL 500 MG TABLET PO SCH ×2 (08:23→16:51)
[2020-11-03] MEDS: DICYCLOMINE HCL 10 MG CAPSULE PO SCH ×5 (08:23→20:42)
[2020-11-03] MEDS: ATENOLOL 50 MG TABLET PO SCH (08:24)
[2020-11-03] MEDS: MEMANTINE HCL 10 MG TABLET PO SCH ×2 (08:24→16:51)
[2020-11-03] MEDS: CHOLECALCIFEROL 1,000 UNIT TABLET PO SCH (08:25)
[2020-11-03] MEDS: POTASSIUM CHLORIDE 20 MEQ TAB.PRT.SR PO SCH (08:25)
[2020-11-03] MEDS: CALCIUM CARBONATE 500 MG TABLET PO SCH (08:25)
[2020-11-03] MEDS: CHLORTHALIDONE 25 MG TABLET PO SCH (08:26)
[2020-11-03] MEDS: SENNOSIDES 1 TABLET PO SCH (08:26)
[2020-11-03] MEDS: buPROPion XL 150 MG TAB.SR.24H PO SCH (08:26)
[2020-11-03] MEDS: MAGNESIUM OXIDE 400 MG TABLET PO SCH (08:26)
[2020-11-03] MEDS: VITAMIN B COMPLEX 1 TABLET PO SCH (08:26)
[2020-11-03] MEDS: [UNRECOGNIZED DRUG - OTHER] PO SCH (08:27)
[2020-11-03] MEDS: HYDROCORTISONE 10 MG TABLET PO SCH ×2 (08:27→20:45)
[2020-11-03] MEDS: MOTEGRITY PO SCH (08:31)
[2020-11-03] MEDS: APIXABAN 5 MG TABLET PO SCH ×2 (08:35→16:59)
[2020-11-03] MEDS: XIIDRA EACHEYE SCH ×2 (08:38→16:53)
[2020-11-03] MEDS: MIRALAX 17 GM POWD.PACK PO SCH (08:42)
[2020-11-03] MEDS: ONDANSETRON ODT 4 MG TAB.RAPDIS SL PRN (09:10)
[2020-11-03 15:55] VITALS: BP 103/53
[2020-11-03] MEDS ORDERED: MIRALAX 17 GM POWD.PACK PO PRN ×2 (17:15→17:30)
[2020-11-03 18:51] LABS: *BILIRUBIN,URIN NEGATIVE (NEGATIVE); *BLOOD, URINE 3+ (NEGATIVE); *CLARITY,URINE CLOUDY (CLEAR); *COLOR,URINE YELLOW (YELLOW); *KETONES,URINE NEGATIVE (NEGATIVE); *UROBILINOGEN,URINE 0.2 E.U./dl (NORMAL); LEUKOCYTE ESTERASE ,URINE 1+ (NEGATIVE); NITRITE, URINE NEGATIVE (NEGATIVE); UGLUCOSE NEGATIVE (NEGATIVE)
[2020-11-03 19:14] LABS: RBC,URINE 20-50 /HPF (0-3)
[2020-11-03 19:15] LABS: BACTERIA,URINE MODERATE /HPF (NONE SEEN); SQUAMOUS EPITHELIAL CELL,UR FEW /HPF (NONE SEEN); YEAST,URINE RARE /HPF (NONE SEEN)
--- NOTE | 2020-11-03 19:45 | NUR ---
Patient alert oriented, no sob no chest pain, cont on pain management on Rt hip surgery. Patient assisted with toileting, kept comfortable, patient had bowel movement today. cont to monitor.
[2020-11-03 20:35] VITALS: BP 105/41
[2020-11-03] MEDS: ATORVASTATIN 20 MG TABLET PO SCH (20:42)
[2020-11-03] MEDS: TRAZODONE 50 MG TABLET PO SCH (20:42)
[2020-11-03] MEDS: FLUTICASONE/VILANTEROL 1 EACH BLST.W.DEV INH SCH (20:49)
[2020-11-04 04:40] VITALS: BP 122/58
[2020-11-04] MEDS: BENZONATATE 100 MG CAPSULE PO SCH ×3 (05:41→21:08)
[2020-11-04] MEDS: OXYCODONE HCL 20 MG TAB.SR.12H PO SCH ×3 (05:42→22:00)
[2020-11-04] MEDS: PANTOPRAZOLE SODIUM 40 MG TABLET.DR PO SCH ×2 (06:05→17:55)
[2020-11-04] MEDS: LEVOTHYROXINE SODIUM 75 MCG TABLET PO SCH (06:05)
[2020-11-04] MEDS: LIOTHYRONINE SODIUM 5 MCG TABLET PO SCH (06:06)
--- NOTE | 2020-11-04 06:40 | NUR ---
Patient alert oriented, patient has no bowel movement throughout the shift, patient still has episode of dry cough, cont on Tessalon meds. Patient assisted with toileting, tolerate well, cont pain management on right hip surgery, cont to monitor.
[2020-11-04 08:17] VITALS: BP 108/48
[2020-11-04] MEDS: LOSARTAN POTASSIUM 50 MG TABLET PO SCH (09:00)
[2020-11-04] MEDS: METFORMIN HCL 500 MG TABLET PO SCH ×2 (09:04→17:56)
[2020-11-04] MEDS: MEMANTINE HCL 10 MG TABLET PO SCH ×2 (09:05→17:56)
[2020-11-04] MEDS: CALCIUM CARBONATE 500 MG TABLET PO SCH (09:05)
[2020-11-04] MEDS: ATENOLOL 50 MG TABLET PO SCH (09:05)
[2020-11-04] MEDS: DICYCLOMINE HCL 10 MG CAPSULE PO SCH ×4 (09:05→21:00)
[2020-11-04] MEDS: POTASSIUM CHLORIDE 20 MEQ TAB.PRT.SR PO SCH (09:12)
[2020-11-04] MEDS: MAGNESIUM OXIDE 400 MG TABLET PO SCH (09:12)
[2020-11-04] MEDS: DOCUSATE SODIUM 250 MG CAPSULE PO SCH ×2 (09:13→17:56)
[2020-11-04] MEDS: CHOLECALCIFEROL 1,000 UNIT TABLET PO SCH (09:13)
[2020-11-04] MEDS: ZINC SULFATE 220 MG CAPSULE PO SCH (09:13)
[2020-11-04] MEDS: buPROPion XL 150 MG TAB.SR.24H PO SCH (09:13)
[2020-11-04] MEDS: SENNOSIDES 1 TABLET PO SCH (09:13)
[2020-11-04] MEDS: HYDROCORTISONE 10 MG TABLET PO SCH ×2 (09:14→21:09)
[2020-11-04] MEDS: CHLORTHALIDONE 25 MG TABLET PO SCH (09:14)
[2020-11-04] MEDS: XIIDRA EACHEYE SCH ×2 (09:14→17:56)
[2020-11-04] MEDS: FLUTICASONE/VILANTEROL 1 EACH BLST.W.DEV INH SCH (09:14)
[2020-11-04] MEDS: busPIRone 5 MG TABLET PO SCH ×3 (09:15→17:56)
[2020-11-04] MEDS: [UNRECOGNIZED DRUG - OTHER] PO SCH (09:15)
[2020-11-04] MEDS: VITAMIN B COMPLEX 1 TABLET PO SCH (09:15)
[2020-11-04] MEDS: FERROUS SULFATE 325 MG TABEC PO SCH ×3 (09:18→17:56)
[2020-11-04] MEDS: MOTEGRITY PO SCH (09:18)
[2020-11-04] MEDS: APIXABAN 5 MG TABLET PO SCH ×2 (09:30→18:00)
[2020-11-04] MEDS: ALBUTEROL SULFATE 2.5 MG/3 ML NEBU NEB PRN ×2 (11:38→16:05)
[2020-11-04] MEDS: IPRATROPIUM BROMIDE 0.5 MG/2.5 ML NEBU NEB PRN ×2 (11:39→16:05)
[2020-11-04] MEDS: FLUCONAZOLE 100 MG TABLET PO SCH (12:37)
[2020-11-04] MEDS: CEphaleXIN 500 MG CAPSULE PO SCH ×2 (13:21→21:09)
--- NOTE | 2020-11-04 13:50 | NUR ---
Patient received awake, alert and fully oriented at the beginning of the shift. No changes in mental status up until this time. Patient able to tolerate PO meals and medications, with no adverse reactions noted. She also went to rehab for OT and PT, pain is well controlled with medications given. No signs of acute distress noted. Pt did complain about burning sensation when urinating, and stated, "I feel the bladder spasms". Dr Reilly was notified with new orders, carried out. Fall and safety precautions maintained.
[2020-11-04 15:18] VITALS: BP 118/59
[2020-11-04] MEDS: GUAIFENESIN/CODEINE 5 ML LIQUID UDC PO PRN (18:05)
[2020-11-04 20:35] VITALS: BP 110/66
[2020-11-04] MEDS: TRAZODONE 50 MG TABLET PO SCH (21:09)
[2020-11-04] MEDS: ATORVASTATIN 20 MG TABLET PO SCH (21:09)
--- NOTE | 2020-11-04 22:00 | NUR ---
Received pt resting in bed. AAO x4. No acute distress noted. C/o moderate pain, routine pain med and other due meds given as ordered. Pt refused Bentyl, risks and benefits explained. Pt c/o spasm on the right mid-thigh to below the knee, noted swelling on the right knee. No redness or warmth noted. As per pt, she has had this occurrence before. Notified Dr. Pereyra with order for Venous doppler. Provided education not to massage the area for now. Right leg elevated. Pt's spasm went away with pain med. Pt also assisted to the bathroom using walker. Safety measures maintained. Call light and personal items within reach. Will continue to monitor.
[2020-11-05] MEDS: GUAIFENESIN/CODEINE 5 ML LIQUID UDC PO PRN (03:19)
[2020-11-05 04:35] VITALS: BP 102/53
[2020-11-05] MEDS: IPRATROPIUM BROMIDE 0.5 MG/2.5 ML NEBU NEB PRN ×3 (04:56→21:59)
[2020-11-05] MEDS: ALBUTEROL SULFATE 2.5 MG/3 ML NEBU NEB PRN ×3 (04:56→21:59)
[2020-11-05] MEDS: CEphaleXIN 500 MG CAPSULE PO SCH ×3 (05:53→21:03)
[2020-11-05] MEDS: BENZONATATE 100 MG CAPSULE PO SCH ×3 (05:54→21:04)
[2020-11-05] MEDS: PANTOPRAZOLE SODIUM 40 MG TABLET.DR PO SCH ×2 (06:01→17:35)
[2020-11-05] MEDS: LIOTHYRONINE SODIUM 5 MCG TABLET PO SCH (06:01)
[2020-11-05] MEDS: LEVOTHYROXINE SODIUM 75 MCG TABLET PO SCH (06:01)
[2020-11-05] MEDS: OXYCODONE HCL 20 MG TAB.SR.12H PO SCH ×3 (06:59→21:04)
[2020-11-05 08:00] VITALS: BP 114/72
[2020-11-05] MEDS: CHOLECALCIFEROL 1,000 UNIT TABLET PO SCH (08:24)
[2020-11-05] MEDS: METFORMIN HCL 500 MG TABLET PO SCH ×2 (08:24→17:00)
[2020-11-05] MEDS: FLUTICASONE/VILANTEROL 1 EACH BLST.W.DEV INH SCH (08:24)
[2020-11-05] MEDS: XIIDRA EACHEYE SCH ×2 (08:24→17:53)
[2020-11-05] MEDS: MAGNESIUM OXIDE 400 MG TABLET PO SCH (08:25)
[2020-11-05] MEDS: APIXABAN 5 MG TABLET PO SCH ×2 (08:25→17:35)
[2020-11-05] MEDS: MEMANTINE HCL 10 MG TABLET PO SCH ×2 (08:26→17:34)
[2020-11-05] MEDS: SENNOSIDES 1 TABLET PO SCH (08:26)
[2020-11-05] MEDS: ZINC SULFATE 220 MG CAPSULE PO SCH (08:26)
[2020-11-05] MEDS: FERROUS SULFATE 325 MG TABEC PO SCH ×3 (08:27→17:35)
[2020-11-05] MEDS: busPIRone 5 MG TABLET PO SCH ×3 (08:27→17:35)
[2020-11-05] MEDS: DOCUSATE SODIUM 250 MG CAPSULE PO SCH ×2 (08:27→17:35)
[2020-11-05] MEDS: CALCIUM CARBONATE 500 MG TABLET PO SCH (08:27)
[2020-11-05] MEDS: buPROPion XL 150 MG TAB.SR.24H PO SCH (08:27)
[2020-11-05] MEDS: FLUCONAZOLE 100 MG TABLET PO SCH (08:27)
[2020-11-05] MEDS: [UNRECOGNIZED DRUG - OTHER] PO SCH (08:28)
[2020-11-05] MEDS: MOTEGRITY PO SCH (08:28)
[2020-11-05] MEDS: POTASSIUM CHLORIDE 20 MEQ TAB.PRT.SR PO SCH (08:29)
[2020-11-05] MEDS: CHLORTHALIDONE 25 MG TABLET PO SCH (08:30)
[2020-11-05] MEDS: HYDROCORTISONE 10 MG TABLET PO SCH ×2 (08:30→20:20)
[2020-11-05] MEDS: VITAMIN B COMPLEX 1 TABLET PO SCH (08:30)
[2020-11-05] MEDS: ATENOLOL 50 MG TABLET PO SCH (08:32)
[2020-11-05] MEDS: LOSARTAN POTASSIUM 50 MG TABLET PO SCH (08:33)
[2020-11-05] MEDS: DICYCLOMINE HCL 10 MG CAPSULE PO SCH ×4 (08:41→20:20)
--- NOTE | 2020-11-05 10:16 | NUR ---
Patient in bed, alert and oriented x 4, cooperative upon assessment, on room air saturating at 94-95% All due meds given per MD order. Went off the unit for therapy and came back after an hour. All needs met promptly. Call light placed. Received a call for the doppler result. Dr. Reilly and Dr. Pereyra made aware.
[2020-11-05 12:06] LABS: BASOPHILS % (AUTO) 0.3 % (0.0-2.0); EOSINOPHILS # (AUTO) 0.4 K/uL (0.0-0.7); EOSINOPHILS % (AUTO) 3.3 % (0.0-7.0); HEMOGLOBIN 8.1 g/dL (10.9-14.3); LYMPHOCYTES # (AUTO) 1.2 K/uL (20.0-40.0); LYMPHOCYTES % (AUTO) 9.7 % (20.5-51.5); MEAN CORPUSCULAR HEMOGLOBIN 34.4 uug (24.7-32.8); MEAN CORPUSCULAR HGB CONC 34 g/dL (32.3-35.6); MEAN CORPUSCULAR VOLUME 101.6 fL (75.5-95.3); MONOCYTES # (AUTO) 1.1 K/uL (2.0-10.0); MONOCYTES % (AUTO) 8.9 % (0.0-11.0); NEUTROPHILS # (AUTO) 9.4 K/uL (1.8-8.9); NEUTROPHILS % (AUTO) 77.8 % (38.5-71.5); PLATELET COUNT (AUTO) 463 K/uL (179-408)
[2020-11-05 12:07] LABS: RED BLOOD CELL COUNT(AUTO) 2.36 MIL/uL (3.63-4.92)
[2020-11-05 12:16] LABS: BILIRUBIN,TOTAL 0.6 mg/dL (0.2-1.0); CREATININE 1.1 mg/dL (0.6-1.3); MAGNESIUM 1.7 mg/dL (1.8-2.4); PHOSPHOROUS 3.7 mg/dL (2.5-4.9); POTASSIUM 4.5 mmol/L (3.5-5.1); TOTAL PROTEIN, SERUM 6.6 g/dL (6.4-8.2)
[2020-11-05 13:22] LABS: *OCCULT BLOOD STOOL NEGATIVE (NEGATIVE)
[2020-11-05] MEDS ORDERED: ISOSORBIDE MONONITRATE 30 MG TAB.SR.24H PO SCH (14:00)
--- NOTE | 2020-11-05 14:30 | NUR ---
Stool sample was given at the lab for occult blood test Patient wanted to have a less stronger pain medication than Dilaudid and Oxycodone . Notified doctor Roddy and ordered for [place] 10-325 every 6 hours PRN for pain and DC Dilaudid. Patient made aware. Left foot steroid injection was done by Dr. Bach and consent was signed by the patient. Dr. Bach ordered for surgical shoe for the left foot. Notified the central supply and left a message twice. Started an IV on the right AC for CTA chest angio , consent was signed by the patient. Notified and asked Dr. Reilly for how long the metformin should be hold and waiting for response. Will endorse accordingly.
[2020-11-05] MEDS ORDERED: DEXAMETHASONE SOD PHOSPHATE 4 MG INJ IV ONE (15:30)
[2020-11-05] MEDS ORDERED: LIDOCAINE 0.5% MPF 50 ML VIAL INJ ONE (15:30)
[2020-11-05 16:00] VITALS: BP 96/61
[2020-11-05] MEDS ORDERED: SWABABLE VALVE TRANSFER SET EA MC ONE (17:27)
[2020-11-05] MEDS ORDERED: IOHEXOL 350 100 ML INFUS..BTL ONE (17:27)
[2020-11-05] MEDS ORDERED: IV NORMAL SALINE 250 ML IV ONE (17:27)
--- NOTE | 2020-11-05 18:25 | NUR ---
Right hip surgical site with onur kept open to air with no s/s of bleeding.
--- NOTE | 2020-11-05 19:01 | NUR ---
Left AC IV site removed Addendum: 11/05/20 at 1933 by EVER NOEL RN RN Right AC IV site removed after the CTA Angio procedure
[2020-11-05 20:00] VITALS: BP 127/53
[2020-11-05] MEDS: TRAZODONE 50 MG TABLET PO SCH (20:20)
[2020-11-05] MEDS: ACETAMINOPHEN 325 MG TABLET PO PRN (20:20)
[2020-11-05] MEDS: ISOSORBIDE DINITRATE 20 MG TABLET PO SCH (21:04)
--- NOTE | 2020-11-05 21:45 | NUR ---
Received pt resting in bed. Pt's was at bedside. AAO x4. No acute distress noted. C/o moderate pain, routine pain med and other due meds given as ordered. Pt refused Bentyl, risks and benefits explained. No s/s of infection on right hip surgical site, kept clean and dry, CATRINA. Reminded pt regarding DVT contraindication such as not massaging the area or applying warm compress. Pt able to teach back. Safety measures maintained. Call light and personal items within reach. Will continue to monitor.
[2020-11-06 04:00] VITALS: BP 111/57
[2020-11-06] MEDS: CEphaleXIN 500 MG CAPSULE PO SCH ×3 (05:00→21:50)
[2020-11-06] MEDS: BENZONATATE 100 MG CAPSULE PO SCH ×3 (05:00→21:13)
[2020-11-06] MEDS: HYDROCODONE/APAP 10-325 MG TABLET PO PRN (05:56)
[2020-11-06] MEDS: PANTOPRAZOLE SODIUM 40 MG TABLET.DR PO SCH ×2 (06:00→16:22)
[2020-11-06] MEDS: LEVOTHYROXINE SODIUM 75 MCG TABLET PO SCH (06:00)
[2020-11-06] MEDS: LIOTHYRONINE SODIUM 5 MCG TABLET PO SCH (06:00)
[2020-11-06] MEDS: OXYCODONE HCL 20 MG TAB.SR.12H PO SCH ×3 (06:00→21:14)
[2020-11-06] MEDS: ISOSORBIDE DINITRATE 20 MG TABLET PO SCH (06:01)
[2020-11-06 08:12] VITALS: BP 96/45
[2020-11-06] MEDS: METFORMIN HCL 500 MG TABLET PO SCH ×2 (09:00→16:26)
[2020-11-06] MEDS: DICYCLOMINE HCL 10 MG CAPSULE PO SCH ×4 (09:00→21:00)
[2020-11-06] MEDS: LOSARTAN POTASSIUM 50 MG TABLET PO SCH (09:00)
[2020-11-06] MEDS: ATENOLOL 50 MG TABLET PO SCH (09:00)
[2020-11-06] MEDS: APIXABAN 5 MG TABLET PO SCH ×2 (09:04→16:23)
[2020-11-06] MEDS: DOCUSATE SODIUM 250 MG CAPSULE PO SCH ×2 (09:06→16:24)
[2020-11-06] MEDS: busPIRone 5 MG TABLET PO SCH ×3 (09:06→16:23)
[2020-11-06] MEDS: POTASSIUM CHLORIDE 20 MEQ TAB.PRT.SR PO SCH (09:07)
[2020-11-06] MEDS: FLUCONAZOLE 100 MG TABLET PO SCH (09:07)
[2020-11-06] MEDS: MAGNESIUM OXIDE 400 MG TABLET PO SCH (09:07)
[2020-11-06] MEDS: CHOLECALCIFEROL 1,000 UNIT TABLET PO SCH (09:07)
[2020-11-06] MEDS: FERROUS SULFATE 325 MG TABEC PO SCH ×3 (09:07→16:22)
[2020-11-06] MEDS: MEMANTINE HCL 10 MG TABLET PO SCH ×2 (09:07→16:22)
[2020-11-06] MEDS: CALCIUM CARBONATE 500 MG TABLET PO SCH (09:08)
[2020-11-06] MEDS: MOTEGRITY PO SCH (09:08)
[2020-11-06] MEDS: [UNRECOGNIZED DRUG - OTHER] PO SCH (09:08)
[2020-11-06] MEDS: buPROPion XL 150 MG TAB.SR.24H PO SCH (09:08)
[2020-11-06] MEDS: SENNOSIDES 1 TABLET PO SCH (09:08)
[2020-11-06] MEDS: ZINC SULFATE 220 MG CAPSULE PO SCH (09:08)
[2020-11-06] MEDS: FLUTICASONE/VILANTEROL 1 EACH BLST.W.DEV INH SCH (09:09)
[2020-11-06] MEDS: XIIDRA EACHEYE SCH ×2 (09:09→21:41)
[2020-11-06] MEDS: HYDROCORTISONE 10 MG TABLET PO SCH ×2 (09:09→21:12)
[2020-11-06] MEDS: CHLORTHALIDONE 25 MG TABLET PO SCH (09:09)
[2020-11-06] MEDS: VITAMIN B COMPLEX 1 TABLET PO SCH (09:09)
[2020-11-06] MEDS: ONDANSETRON ODT 4 MG TAB.RAPDIS SL PRN (09:27)
--- NOTE | 2020-11-06 09:55 | NUR ---
Received pt ambulating to restroom with FWW, pt returned safely to bed when finished. Pt A&Ox4, able to verbalize needs, no acute distress. Pt refused Bentyl this am, purpose, risks, benefits discussed with pt. BP medications held this am d/t decreased BP. Pt denied dizziness,feeling lightheaded. Metformin held per order, pt received IV contrast yesterday. Pt reported nausea, requested Zofran. Will monitor for effectiveness. Other due medications given per order. Pt reported pain on posterior right leg, per pt, has had this pain for "several days". Mild swelling noted on right knee, no redness or warmth noted. Pt refused pain medication at this time. Dr. Tommie PERALTA aware of Venous Doppler imaging results, cleared pt for participation in physical therapy. Safety measures in place, call light within reach. Continue to monitor. Addendum: 11/06/20 at 1858 by YASMANY JOHNSON RN RN Dr. Reilly aware of pt's report of pain today.
--- NOTE | 2020-11-06 12:45 | NUR ---
Dr. Castañeda at bedside this afternoon, examined pt. Report given to MD, new orders in place. Will carry out and continue to monitor.
[2020-11-06] MEDS: FUROSEMIDE 40 MG TABLET PO SCH (13:32)
[2020-11-06] MEDS: TICAGRELOR 90 MG TABLET PO SCH ×2 (13:33→21:15)
[2020-11-06] MEDS: ISOSORBIDE MONONITRATE 60 MG TAB.SR.24H PO SCH ×2 (13:40→21:18)
[2020-11-06 13:54] VITALS: BP 122/62
[2020-11-06] MEDS ORDERED: DEXTROSE 50% 50 ML DISP.SYRIN IV PRN (14:00)
[2020-11-06] MEDS: ALBUTEROL SULFATE 2.5 MG/3 ML NEBU NEB PRN ×2 (14:40→20:45)
[2020-11-06] MEDS: IPRATROPIUM BROMIDE 0.5 MG/2.5 ML NEBU NEB PRN ×2 (14:41→20:45)
[2020-11-06 16:00] VITALS: BP 111/61
[2020-11-06] MEDS: BLOOD SUGAR DIAGNOSTIC 1 EACH STRIP VI SCH ×2 (16:17→20:22)
[2020-11-06] MEDS: INSULIN REGULAR, HUMAN 300 UNIT/3 ML VIAL SQ PRN ×2 (17:09→22:03)
--- NOTE | 2020-11-06 18:51 | NUR ---
EOSS: Pt in bed, at bedside. Pt in no acute distress, VSS. All needs met at this time. Pt denies pain/discomfort at this time. Due medications given per order, no a/r noted. Pt's blood sugar 138 this afternoon, covered per order with sliding scale insulin. Right hip onur open to air, clean/dry/intact. Pt able to safely ambulate to restroom and back with FWW. Safety ensured. Call light and belongings within reach. Will endorse care to day care teacher nurse.
[2020-11-06 20:32] VITALS: BP 124/64
[2020-11-06] MEDS: TRAZODONE 50 MG TABLET PO SCH (21:17)
--- NOTE | 2020-11-06 21:55 | NUR ---
Received patient sitting in bed, at bedside, no acute distress or discomfort Due meds administered as ordered routine pain meds administered as scheduled, PRN Accu-check done BS 134 refused sliding scale Coverage Insulin. stated "had juice" Refused Bentyl 10 mg po. Risk and benefits discussed respected patients rights, VSS, Right hip onur open to air, intact, no s/s of infection. Patient safely ambulates to restroom and back to bed with FWW one person supervision Safety ensured. Call light and belongings within reach.
[2020-11-06] MEDS: GUAIFENESIN/CODEINE 5 ML LIQUID UDC PO PRN (22:57)
--- NOTE | 2020-11-07 01:39 | NUR ---
Patient requested Robitussin AC Q 6hrs PRN for cough, administered as ordered, helped , no further episode noted, provide quite environment. Needs anticipated , call light with in reach. Will continue monitoring.
[2020-11-07 04:50] VITALS: BP 102/46
[2020-11-07] MEDS: HYDROCODONE/APAP 10-325 MG TABLET PO PRN (05:08)
[2020-11-07] MEDS: PANTOPRAZOLE SODIUM 40 MG TABLET.DR PO SCH ×2 (06:40→16:04)
[2020-11-07] MEDS: ISOSORBIDE MONONITRATE 60 MG TAB.SR.24H PO SCH ×3 (06:40→21:29)
[2020-11-07] MEDS: BENZONATATE 100 MG CAPSULE PO SCH ×3 (06:42→21:29)
[2020-11-07] MEDS: CEphaleXIN 500 MG CAPSULE PO SCH ×2 (06:42→13:33)
[2020-11-07] MEDS: LEVOTHYROXINE SODIUM 75 MCG TABLET PO SCH (06:43)
[2020-11-07] MEDS: BLOOD SUGAR DIAGNOSTIC 1 EACH STRIP VI SCH ×4 (06:46→20:30)
[2020-11-07] MEDS: OXYCODONE HCL 20 MG TAB.SR.12H PO SCH ×3 (06:46→21:32)
[2020-11-07] MEDS: LIOTHYRONINE SODIUM 5 MCG TABLET PO SCH (06:54)
--- NOTE | 2020-11-07 07:37 | NUR ---
Patient is on routine Isorsorbide mononitrate for parameters called REHAB DEPARTMENT MANAGER Tati Norton received parameters for med hold for SBP less than 100. order noted and carried out.
--- NOTE | 2020-11-07 07:42 | NUR ---
patient remain calm and relaxed all needs anticipated. All due medication administered as order, Accucheck done BS 125. Will continue with current plan of care. Endorse am nurse accordingly.
[2020-11-07 08:00] VITALS: BP 109/71
[2020-11-07] MEDS: buPROPion XL 150 MG TAB.SR.24H PO SCH (08:28)
[2020-11-07] MEDS: CHOLECALCIFEROL 1,000 UNIT TABLET PO SCH (08:28)
[2020-11-07] MEDS: POTASSIUM CHLORIDE 20 MEQ TAB.PRT.SR PO SCH (08:28)
[2020-11-07] MEDS: MAGNESIUM OXIDE 400 MG TABLET PO SCH (08:29)
[2020-11-07] MEDS: CALCIUM CARBONATE 500 MG TABLET PO SCH (08:29)
[2020-11-07] MEDS: FUROSEMIDE 40 MG TABLET PO SCH (08:29)
[2020-11-07] MEDS: DICYCLOMINE HCL 10 MG CAPSULE PO SCH ×4 (08:29→21:00)
[2020-11-07] MEDS: SENNOSIDES 1 TABLET PO SCH (08:29)
[2020-11-07] MEDS: DOCUSATE SODIUM 250 MG CAPSULE PO SCH ×2 (08:31→16:04)
[2020-11-07] MEDS: FERROUS SULFATE 325 MG TABEC PO SCH ×3 (08:31→16:04)
[2020-11-07] MEDS: MEMANTINE HCL 10 MG TABLET PO SCH ×2 (08:31→16:04)
[2020-11-07] MEDS: ZINC SULFATE 220 MG CAPSULE PO SCH (08:31)
[2020-11-07] MEDS: FLUCONAZOLE 100 MG TABLET PO SCH (08:32)
[2020-11-07] MEDS: APIXABAN 5 MG TABLET PO SCH ×2 (08:32→16:08)
[2020-11-07] MEDS: busPIRone 5 MG TABLET PO SCH ×3 (08:32→16:13)
[2020-11-07] MEDS: ATENOLOL 50 MG TABLET PO SCH (08:33)
[2020-11-07] MEDS: VITAMIN B COMPLEX 1 TABLET PO SCH (08:34)
[2020-11-07] MEDS: HYDROCORTISONE 10 MG TABLET PO SCH ×2 (08:34→21:30)
[2020-11-07] MEDS: CHLORTHALIDONE 25 MG TABLET PO SCH (08:34)
[2020-11-07] MEDS: [UNRECOGNIZED DRUG - OTHER] PO SCH (08:34)
[2020-11-07] MEDS: XIIDRA EACHEYE SCH ×2 (08:42→21:31)
[2020-11-07] MEDS: METFORMIN HCL 500 MG TABLET PO SCH ×2 (08:42→16:05)
[2020-11-07] MEDS: FLUTICASONE/VILANTEROL 1 EACH BLST.W.DEV INH SCH (08:42)
[2020-11-07] MEDS: TICAGRELOR 90 MG TABLET PO SCH ×2 (08:43→16:32)
[2020-11-07] MEDS: MOTEGRITY PO SCH (08:43)
[2020-11-07] MEDS: LOSARTAN POTASSIUM 50 MG TABLET PO SCH (08:45)
[2020-11-07] MEDS: IPRATROPIUM BROMIDE 0.5 MG/2.5 ML NEBU NEB PRN ×2 (10:36→17:05)
[2020-11-07] MEDS: ALBUTEROL SULFATE 2.5 MG/3 ML NEBU NEB PRN ×2 (10:36→17:05)
[2020-11-07] MEDS: NITROFURANTOIN/NITROFURAN MAC 100 MG CAPSULE PO SCH ×2 (14:58→21:29)
--- NOTE | 2020-11-07 15:45 | NUR ---
patient stated she would like to see pillowcase turner, pillowcase turner made aware
[2020-11-07 16:00] VITALS: BP 128/61
[2020-11-07] MEDS: INSULIN REGULAR, HUMAN 300 UNIT/3 ML VIAL SQ PRN (16:33)
--- NOTE | 2020-11-07 16:57 | NUR ---
patient complained that her right eye feels swollen, dr lópez made aware
[2020-11-07] MEDS: MAG HYDROX/AL HYDROX/SIMETH 30 ML LIQUID UDC PO PRN (19:11)
--- NOTE | 2020-11-07 19:43 | NUR ---
Received patient alert oriented at room air. sitting at bed side talking to patient. safety measures observed. call light with in reach.
[2020-11-07] MEDS: ACETAMINOPHEN 325 MG TABLET PO PRN (19:59)
[2020-11-07 20:09] VITALS: BP 148/70
[2020-11-07] MEDS: TRAZODONE 50 MG TABLET PO SCH (21:29)
--- NOTE | 2020-11-07 22:51 | NUR ---
Patient AAO x4, sleeping intermittently. All due medication administered as ordered , No acute distress noted. Routine pain medication administered as ordered effective. Patient refused Bentyl 10 mg Po, At night risks and benefits explained. No s/s of infection on right hip surgical site, kept clean and dry, patient ambulates with FWW BRP supervision provided all time Accu-check done, no coverage needed as per sliding scale. Snacks and fluids offered. Safety measures observed all time. VSS Kept call light with in reach.
[2020-11-08] MEDS: GUAIFENESIN/CODEINE 5 ML LIQUID UDC PO PRN ×2 (04:02→23:20)
[2020-11-08 04:30] VITALS: BP 106/53
[2020-11-08] MEDS: PANTOPRAZOLE SODIUM 40 MG TABLET.DR PO SCH ×2 (06:10→17:43)
[2020-11-08] MEDS: LEVOTHYROXINE SODIUM 75 MCG TABLET PO SCH (06:10)
[2020-11-08] MEDS: BENZONATATE 100 MG CAPSULE PO SCH ×3 (06:10→21:42)
[2020-11-08] MEDS: ISOSORBIDE MONONITRATE 60 MG TAB.SR.24H PO SCH ×3 (06:11→21:44)
[2020-11-08] MEDS: LIOTHYRONINE SODIUM 5 MCG TABLET PO SCH (06:11)
[2020-11-08] MEDS: OXYCODONE HCL 20 MG TAB.SR.12H PO SCH ×3 (06:21→21:43)
[2020-11-08] MEDS: BLOOD SUGAR DIAGNOSTIC 1 EACH STRIP VI SCH ×4 (06:34→21:17)
--- NOTE | 2020-11-08 06:41 | NUR ---
Patient alert oriented x4, Slept intermittently no acute distress, all due medication administered, as ordered, scheduled pain meds administered as ordered,no AR noted fluids intake as tolerated, help with bowel and bladder continent VSS. All needs anticipated. Safety precautions observed all time. Call light with in reach. Will endorse accordingly to AM shift.
[2020-11-08 07:48] VITALS: BP 103/53
[2020-11-08] MEDS: ONDANSETRON ODT 4 MG TAB.RAPDIS SL PRN ×2 (08:29→14:38)
[2020-11-08] MEDS: DICYCLOMINE HCL 10 MG CAPSULE PO SCH ×5 (08:30→21:06)
[2020-11-08] MEDS: METFORMIN HCL 500 MG TABLET PO SCH ×2 (08:31→17:43)
[2020-11-08] MEDS: CALCIUM CARBONATE 500 MG TABLET PO SCH (08:31)
[2020-11-08] MEDS: FERROUS SULFATE 325 MG TABEC PO SCH ×3 (08:31→17:43)
[2020-11-08] MEDS: DOCUSATE SODIUM 250 MG CAPSULE PO SCH ×2 (08:32→17:43)
[2020-11-08] MEDS: buPROPion XL 150 MG TAB.SR.24H PO SCH (08:32)
[2020-11-08] MEDS: MEMANTINE HCL 10 MG TABLET PO SCH ×2 (08:32→17:43)
[2020-11-08] MEDS: MAGNESIUM OXIDE 400 MG TABLET PO SCH (08:32)
[2020-11-08] MEDS: busPIRone 5 MG TABLET PO SCH ×3 (08:32→17:43)
[2020-11-08] MEDS: ZINC SULFATE 220 MG CAPSULE PO SCH (08:32)
[2020-11-08] MEDS: FUROSEMIDE 40 MG TABLET PO SCH (08:33)
[2020-11-08] MEDS: NITROFURANTOIN/NITROFURAN MAC 100 MG CAPSULE PO SCH ×2 (08:33→21:06)
[2020-11-08] MEDS: CHOLECALCIFEROL 1,000 UNIT TABLET PO SCH (08:33)
[2020-11-08] MEDS: SENNOSIDES 1 TABLET PO SCH (08:33)
[2020-11-08] MEDS: POTASSIUM CHLORIDE 20 MEQ TAB.PRT.SR PO SCH (08:34)
[2020-11-08] MEDS: TICAGRELOR 90 MG TABLET PO SCH ×2 (08:34→17:46)
[2020-11-08] MEDS: [UNRECOGNIZED DRUG - OTHER] PO SCH (08:37)
[2020-11-08] MEDS: HYDROCORTISONE 10 MG TABLET PO SCH ×2 (08:37→21:06)
[2020-11-08] MEDS: MOTEGRITY PO SCH (08:37)
[2020-11-08] MEDS: VITAMIN B COMPLEX 1 TABLET PO SCH (08:38)
[2020-11-08] MEDS: FLUTICASONE/VILANTEROL 1 EACH BLST.W.DEV INH SCH (08:39)
[2020-11-08] MEDS: CHLORTHALIDONE 25 MG TABLET PO SCH (08:40)
[2020-11-08] MEDS: LOSARTAN POTASSIUM 50 MG TABLET PO SCH (08:43)
[2020-11-08] MEDS: APIXABAN 5 MG TABLET PO SCH ×2 (08:43→17:47)
[2020-11-08] MEDS: ATENOLOL 50 MG TABLET PO SCH (08:44)
[2020-11-08] MEDS: XIIDRA EACHEYE SCH ×2 (08:45→21:06)
[2020-11-08] MEDS: ACETAMINOPHEN 325 MG TABLET PO PRN (11:57)
[2020-11-08 16:00] VITALS: BP 111/49
--- NOTE | 2020-11-08 19:50 | NUR ---
Patient in the bathroom during initial rounds. No bladder discomforts presented. Self care. Ambulated back to bed with minimal assist. Some non productive cough. Continue care as planned.
[2020-11-08 20:08] VITALS: BP 96/56
[2020-11-08] MEDS: TRAZODONE 50 MG TABLET PO SCH (21:06)
[2020-11-09] MEDS: MAG HYDROX/AL HYDROX/SIMETH 30 ML LIQUID UDC PO PRN (03:07)
--- NOTE | 2020-11-09 03:10 | NUR ---
Complaining of sharp non radiating left chest pain, rubbing chest to relieved discomforts when arrived. VS taken 129/65, 77, 98% O2 sat. Assisted to the BR and starts burping. Mylanta given as ordered and needed for gastric discomforts. Will monitor.
[2020-11-09 04:39] VITALS: BP 110/58
[2020-11-09] MEDS: PANTOPRAZOLE SODIUM 40 MG TABLET.DR PO SCH (06:10)
[2020-11-09] MEDS: LIOTHYRONINE SODIUM 5 MCG TABLET PO SCH (06:10)
[2020-11-09] MEDS: LEVOTHYROXINE SODIUM 75 MCG TABLET PO SCH (06:11)
[2020-11-09] MEDS: OXYCODONE HCL 20 MG TAB.SR.12H PO SCH ×2 (06:11→13:35)
[2020-11-09] MEDS: ISOSORBIDE MONONITRATE 60 MG TAB.SR.24H PO SCH ×2 (06:12→13:36)
[2020-11-09] MEDS: BENZONATATE 100 MG CAPSULE PO SCH ×2 (06:12→13:35)
[2020-11-09] MEDS: BLOOD SUGAR DIAGNOSTIC 1 EACH STRIP VI SCH ×2 (06:19→12:20)
--- NOTE | 2020-11-09 06:52 | NUR ---
Shift End Report: VS stable. No more complaint of chest pain presented. No s/s of hypo/hyperglycemia. No further episode of cough. All needs attended and met. Continue current plan of care.
[2020-11-09] MEDS: DOCUSATE SODIUM 250 MG CAPSULE PO SCH (08:26)
[2020-11-09] MEDS: POTASSIUM CHLORIDE 20 MEQ TAB.PRT.SR PO SCH (08:26)
[2020-11-09] MEDS: SENNOSIDES 1 TABLET PO SCH (08:26)
[2020-11-09] MEDS: MAGNESIUM OXIDE 400 MG TABLET PO SCH (08:26)
[2020-11-09] MEDS: CHOLECALCIFEROL 1,000 UNIT TABLET PO SCH (08:26)
[2020-11-09] MEDS: METFORMIN HCL 500 MG TABLET PO SCH (08:26)
[2020-11-09] MEDS: FUROSEMIDE 40 MG TABLET PO SCH (08:27)
[2020-11-09] MEDS: FERROUS SULFATE 325 MG TABEC PO SCH ×2 (08:27→13:35)
[2020-11-09] MEDS: NITROFURANTOIN/NITROFURAN MAC 100 MG CAPSULE PO SCH (08:27)
[2020-11-09] MEDS: ZINC SULFATE 220 MG CAPSULE PO SCH (08:27)
[2020-11-09] MEDS: CALCIUM CARBONATE 500 MG TABLET PO SCH (08:27)
[2020-11-09] MEDS: busPIRone 5 MG TABLET PO SCH ×2 (08:27→13:36)
[2020-11-09] MEDS: buPROPion XL 150 MG TAB.SR.24H PO SCH (08:27)
[2020-11-09] MEDS: ATENOLOL 50 MG TABLET PO SCH (08:28)
[2020-11-09] MEDS: LOSARTAN POTASSIUM 50 MG TABLET PO SCH (08:28)
[2020-11-09] MEDS: XIIDRA EACHEYE SCH (08:28)
[2020-11-09] MEDS: MEMANTINE HCL 10 MG TABLET PO SCH (08:28)
[2020-11-09] MEDS: TICAGRELOR 90 MG TABLET PO SCH (08:29)
[2020-11-09] MEDS: VITAMIN B COMPLEX 1 TABLET PO SCH (08:29)
[2020-11-09] MEDS: MOTEGRITY PO SCH (08:29)
[2020-11-09] MEDS: CHLORTHALIDONE 25 MG TABLET PO SCH (08:29)
[2020-11-09] MEDS: HYDROCORTISONE 10 MG TABLET PO SCH (08:29)
[2020-11-09] MEDS: FLUTICASONE/VILANTEROL 1 EACH BLST.W.DEV INH SCH (08:29)
[2020-11-09] MEDS: DICYCLOMINE HCL 10 MG CAPSULE PO SCH ×2 (08:30→13:00)
[2020-11-09] MEDS: [UNRECOGNIZED DRUG - OTHER] PO SCH (08:30)
[2020-11-09 08:37] VITALS: BP 111/51
[2020-11-09] MEDS: APIXABAN 5 MG TABLET PO SCH (08:43)
[2020-11-09] MEDS: HYDROCODONE/APAP 10-325 MG TABLET PO PRN (11:34)
[2020-11-09 14:18] VITALS: BP 125/75
--- NOTE | 2020-11-09 15:40 | NUR ---
patient discharged home, picked up by , belongings sent home, patient meds sent home, oxycodone 98 pills sent home with patient, skin intact, patient is in stable condition, alert, oriented x4, no sob, resp even nonlabored, skin warm and dry to to touch, patient teaching provided about each medication, prescription given to patient, patient verbalized understanding of it, no IV access on patient, ambulatory with fww,
== END 2020-11-09 15:40 | disposition home health service (06) | DRG 559 ==
PROVIDERS: ADMIT Physical Medicine & Rehabilitation Pain Medicine; ATTEND Physical Medicine & Rehabilitation Pain Medicine
DX: Z47.1 Aftercare following joint replacement surgery (principal); N17.0 Acute kidney failure with tubular necrosis; D68.59 Other primary thrombophilia; E27.40 Unspecified adrenocortical insufficiency; I48.20 Chronic atrial fibrillation, unspecified; I50.32 Chronic diastolic (congestive) heart failure; I13.0 Hypertensive heart and chronic kidney disease with heart failure and stage 1 through stage 4 chronic kidney disease, or unspecified chronic kidney disease; Z96.641 Presence of right artificial hip joint; E03.9 Hypothyroidism, unspecified; E11.22 Type 2 diabetes mellitus with diabetic chronic kidney disease; E78.5 Hyperlipidemia, unspecified; F03.90 Unspecified dementia, unspecified severity, without behavioral disturbance, psychotic disturbance, mood disturbance, and anxiety; R53.1 Weakness; F32.9 Major depressive disorder, single episode, unspecified; F41.9 Anxiety disorder, unspecified; I48.91 Unspecified atrial fibrillation; I44.7 Left bundle-branch block, unspecified; J44.9 Chronic obstructive pulmonary disease, unspecified; K58.9 Irritable bowel syndrome, unspecified; M16.11 Unilateral primary osteoarthritis, right hip; N18.9 Chronic kidney disease, unspecified; Z86.14 Personal history of Methicillin resistant Staphylococcus aureus infection; Z98.61 Coronary angioplasty status; D64.9 Anemia, unspecified; D75.89 Other specified diseases of blood and blood-forming organs; Z87.891 Personal history of nicotine dependence; Z88.1 Allergy status to other antibiotic agents; N13.9 Obstructive and reflux uropathy, unspecified; Z88.8 Allergy status to other drugs, medicaments and biological substances; K21.9 Gastro-esophageal reflux disease without esophagitis; D36.13 Benign neoplasm of peripheral nerves and autonomic nervous system of lower limb, including hip; I25.10 Atherosclerotic heart disease of native coronary artery without angina pectoris; I27.20 Pulmonary hypertension, unspecified; Z79.01 Long term (current) use of anticoagulants; I71.2 Thoracic aortic aneurysm, without rupture; Z79.891 Long term (current) use of opiate analgesic; R26.89 Other abnormalities of gait and mobility; R19.5 Other fecal abnormalities
CPT/HCPCS: 36415; 70030-TC; 71045; 71275; 73502; 73630; 82652; 83550; 83735; 84100; 84443; 84550; 85018; 85025; 87070; 87077; 87086; 93307; 94640; A4663; J1100; J1815; J3490; J3590; J7050; Q0162; Q0167; Q9967